=== PATIENT | female | born 1975 | race Caucasian/White ===

== ENCOUNTER 2024-05-25 06:54 | Emergency (ER) | payer BC, OTHER ==
[2024-05-25] MEDS: Iopamidol 755 MG/ML 500 ML Multipack Bottle IVPUSH ONE (07:19)
[2024-05-25] MEDS: LORazepam 2 MG/ML SDV IVPUSH ONE (07:55)
[2024-05-25] MEDS: Sodium Chloride 0.9% 1,000 ML IV ONE ×2 (07:56→09:22)
[2024-05-25] MEDS: Morphine 4 MG/ML Syringe IVPUSH ONE (08:15)
[2024-05-25 08:32] LABS: BASOPHILS ABSOLUTE AUTO 0.03 K/uL (0.00-0.20); BASOPHILS PERCENT AUTO 0.4 % (0.0-1.0); EOSINOPHILS ABSOLUTE AUTO 0.14 K/uL (0.00-0.45); HEMATOCRIT 29.9 % (37.0-47.0); IMMATURE GRAN ABSOLUTE AUTO 0.02 K/uL (0.00-0.05); IMMATURE GRAN PERCENT AUTO 0.3 % (0.0-0.4); LYMPHOCYTES ABSOLUTE AUTO 0.58 K/uL (1.00-4.80); LYMPHOCYTES PERCENT AUTO 8.1 % (24.0-44.0); MEAN CORPUSCULAR HEMOGLOBIN 26.5 pg (28.0-32.0); MEAN CORPUSCULAR HGB CONC 33.4 g/dL (32.0-36.0); MEAN CORPUSCULAR VOLUME 79.3 fL (83.0-99.0); MEAN PLATELET VOLUME 11.9 fL (9.4-12.3); MONOCYTES ABSOLUTE AUTO 0.68 K/uL (0.00-0.80); MONOCYTES PERCENT AUTO 9.5 % (0.0-8.0); NEUTROPHILS ABSOLUTE AUTO 5.68 K/uL (1.80-7.70); NEUTROPHILS PERCENT AUTO 79.7 % (41.0-71.0); PLATELET COUNT,PLT 170 K/uL (150-400); RED BLOOD CELL COUNT 3.77 M/uL (4.10-5.30); WHITE BLOOD CELL COUNT,WBC 7.13 K/uL (3.9-11.3)
[2024-05-25 08:53] LABS: A/G RATIO 1.1 (0.9-1.6); ALANINE AMINOTRANSFERASE,ALT 22 IU/L (14-63); ALBUMIN 3.2 g/dL (3.4-5.0); ALKALINE PHOSPHATASE 48 U/L (46-116); ASPARTATE AMNIOTRANSFERASE,AST 20 IU/L (15-37); BILIRUBIN TOTAL 0.5 mg/dL (0.2-1.0); BLOOD UREA NITROGEN,BUN 19 mg/dL (7.0-18.0); CALCIUM 8.7 mg/dL (8.5-10.1); CARBON DIOXIDE,CO2 23.4 mmol/L (21.0-32.0); CHLORIDE,CL 102 mmol/L (98-107); CREATINE KINASE,CK 182 U/L (26-308); EST CRCL DRUG DOSING (CG) 36.34 mL/min; GLUCOSE RANDOM 98 mg/dL (74-106); POTASSIUM,K 3.5 mmol/L (3.5-5.1); PROTEIN TOTAL,TP 6.2 g/dL (6.4-8.2); SODIUM,NA 137 mmol/L (136-145)
[2024-05-25 08:54] LABS: ESTIMATED GFR 30 mL/min (>60); ETHANOL BLOOD MEDICAL < 3.0 mg/dL
[2024-05-25] MEDS: fentaNYL 100 MCG/2 ML SDV IVPUSH ONE (09:21)
[2024-05-25] MEDS: Ketorolac 30 MG/ML SDV IVPUSH ONE (09:23)
[2024-05-25] MEDS: fentaNYL 100 MCG/2 ML SDV ONE (10:03)
[2024-05-25] MEDS: oxyCODONE 5 MG Tab PO ONE (13:00)
[2024-05-25] MEDS: Lactated Ringers 1,000 ML IV SCH ×2 (13:28→15:49)
[2024-05-25] MEDS: Acetaminophen 500 MG Tab PO ONE (14:40)
[2024-05-25] MEDS ORDERED: Heparin Sodium 5,000 Units/ML Vial IVPUSH ONE (15:17)
[2024-05-25] MEDS ORDERED: ALPRAZolam 0.25 MG Tab PO ONE (15:28)
[2024-05-25] MEDS: Aspirin 81 MG Tab.Chew PO ONE (15:34)
[2024-05-25] MEDS: Heparin Sodium 5,000 Units/ML Vial IVPUSH ONE (15:34)
[2024-05-25] MEDS: Heparin Sodium/0.45% NaCl 25,000 UNITS/250 ML BAG IV SCH (15:35)
[2024-05-25] MEDS: ALPRAZolam 0.5 MG Tab PO ONE (15:42)
== END 2024-05-25 18:47 ==
LOC: MW.ED 06:54
DX: S16.1XXA Strain of muscle, fascia and tendon at neck level, initial encounter (principal); I21.4 Non-ST elevation (NSTEMI) myocardial infarction; R55 Syncope and collapse; M54.6 Pain in thoracic spine; Z88.8 Allergy status to other drugs, medicaments and biological substances; Z88.1 Allergy status to other antibiotic agents; W19.XXXA Unspecified fall, initial encounter
CPT/HCPCS: 36415; 70450; 71260; 72125; 72141; 74177; 80053; 80307; 82550; 83605; 83880; 84484; 84703; 85025; 85730; 93005; 96361; 96365; 96366; 96375; 99285; A9270; J1644; J1885; J2060; J3010; J7030; J7120; Q9967; 93010